=== PATIENT | male | born 1985 | race Caucasian/White ===

== ENCOUNTER 2023-04-09 07:10 | Day surgery (SDC) | payer OTHER ==
[~2023-04-09] VITALS: Ht 193 cm; Wt 82.6 kg
[2023-04-09 08:06] VITALS: O2SAT 97
[2023-04-09] MEDS ORDERED: ACETAMINOPHEN I.V. 1000 MG 100 ML IV ONE (08:45)
[2023-04-09] MEDS ORDERED: DEXAMETHASONE SOD PHOSPHATE 4 MG/ML VIAL ONE (09:42)
[2023-04-09] MEDS ORDERED: fentaNYL CITRATE/PF 100 MCG/2 ML AMP ONE (09:42)
[2023-04-09] MEDS ORDERED: LIDOCAINE 2%, 20 ML MDV ONE (09:42)
[2023-04-09] MEDS ORDERED: SUGAMMADEX SODIUM 200 MG/2 ML VIAL IV ONE (09:42)
[2023-04-09] MEDS ORDERED: OXYMETAZOLINE HCL 0.05% NASAL SPRAY NS ONE (09:42)
[2023-04-09] MEDS ORDERED: LIDOCAINE/EPI 1% 1:100000 20 ML VIAL ONE (09:42)
[2023-04-09] MEDS ORDERED: ONDANSETRON HCL 4 MG/2 ML VIAL ONE (09:42)
[2023-04-09] MEDS ORDERED: ROCURONIUM BROMIDE 10 MG/ML (ZEMURON) ONE (09:42)
[2023-04-09] MEDS ORDERED: PROPOFOL 200MG/ 20ML VIAL (DIPRIVAN) IV ONE (09:42)
[2023-04-09] MEDS ORDERED: MIDAZOLAM HCL 2 MG/2 ML VIAL (VERSED) ONE (09:42)
[2023-04-09] MEDS ORDERED: EPINEPHrine HCL 1 MG/ML VIAL ONE (09:42)
[2023-04-09] MEDS ORDERED: DESFLURANE 15 MIN GAS INH ONE (09:42)
[2023-04-09] MEDS ORDERED: LR 1,000 ML IV.SOLN IV ONE (09:42)
[2023-04-09] MEDS ORDERED: LR 1,000 ML IV SCH (10:30)
[2023-04-09] MEDS ORDERED: LABETALOL 100 MG/ 20ML VIAL IVP PRN (10:30)
[2023-04-09] MEDS ORDERED: hydrALAZINE HCL 20 MG/ML VIAL IVP PRN (10:30)
[2023-04-09] MEDS ORDERED: MEPERIDINE HCL/PF 25 MG/ML DISP.SYRIN IVP PRN (10:30)
[2023-04-09] MEDS ORDERED: METOCLOPRAMIDE HCL 10 MG/2 ML VIAL IVP PRN (10:30)
[2023-04-09] MEDS ORDERED: HYDROmorphone 1 MG/ML INJ. CARTRIDGE IVP PRN ×2 (10:30)
[2023-04-09 14:27] VITALS: BP_SYST 130; PULSE 69; RESP 20
== END 2023-04-09 14:10 | disposition home or self-care (01) ==
LOC: SDS 07:10 → SMU 07:11 → SDS 14:10
PROVIDERS: ATTEND Otolaryngology
DX: J34.2 Deviated nasal septum (principal); D38.5 Neoplasm of uncertain behavior of other respiratory organs; J34.3 Hypertrophy of nasal turbinates; K21.9 Gastro-esophageal reflux disease without esophagitis; J30.1 Allergic rhinitis due to pollen; G43.909 Migraine, unspecified, not intractable, without status migrainosus; Z79.899 Other long term (current) drug therapy
CPT/HCPCS: 31256; 88304; 88311; 30140; 30520; J3490; J1100; J0171; J2001; J3465; J2405; J2704; J3010; J7120; C1726; J0131; 88305